=== PATIENT | female | born 1990 | race Caucasian/White ===

== ENCOUNTER 2017-05-08 19:03 | Inpatient (IN) | payer OTHER ==
[~2017-05-08] VITALS: Ht 157.5 cm; Wt 70.0 kg
[2017-05-08] MEDS ORDERED: LACTATED RINGER'S 1,000 ML IV SCH (19:14)
[2017-05-08 19:17] VITALS: Ht 157.5 cm; Wt 70.0 kg
--- NOTE | 2017-05-08 19:29 | TRIAGE ---
OB Triage Datetime Report Generated by CPN: 05/08/2017 19:29 Datetime: 05/08/2017 19:25 Time of Arrival: 05/08/2017 19:00 EGA: 39.6 Arrived By: Ambulatory Arrived From: Home Chief Complaint: PT HERE C/O UC'S Movement: Present Contractions: Regular Time Contractions Began: 05/08/2017 14:00 Rupture of Membranes: Ruptured Vaginal Bleeding: None Vaginal Discharge: Denies Recent Sexual Intercouse: Denies Abdominal Trauma: Not Applicable Patient Complaints: Contractions; Cramping; Back Pain Time Provider Notified: 05/08/2017 19:14 Provider Notified: ARDALAN Initial Plan: EFM/SVE Datetime: 05/08/2017 19:15 Assessment Type: Triage Maternal Assessment Level of Consciousness: Fully Conscious DTR's/Clonus: DTRs 2+; No Clonus Headache: Denies Blurred Vision: No Respiratory Effort: Unlabored; Regular Rhythm; Equal Expansion Breath Sounds, Left: Clear and Equal Breath Sounds, Right: Clear and Equal Nausea/Vomiting: Denies RUQ Epigastric Pain: Denies Lower Extremities Edema: None Degree: None Upper Extremities Edema: None Degree: None Facial Edema: None Fall Risk Assessment History of Falling: (0) No Secondary Diagnosis: (0) No Ambulatory Aid: (0) Bedrest/Nurse Assist IV Therapy: (0) No Gait: (0) Normal/Bedrest/Immobile Mental Status: (0) Oriented to Own Ability Fall Score: 0 Fall Risk Score Definition: No Risk: No action required Datetime: 05/08/2017 19:13 Vaginal Exam Dilatation (cms): 10.0 Effacement (%): 100 Station: 0 Exam By: GEOVANY Vaginal Bleeding: None Cervix, Consistency: Soft Cervix, Position: Anterior Presentation 'A': Cephalic Datetime: 05/08/2017 19:11 Labor Evaluation Monitor Mode: External Heart Rate Monitor Mode: External US
[2017-05-08 19:30] VITALS: BP 126/80; PULSE 121; RESP 18
[2017-05-08] MEDS ORDERED: METHYLERGONOVINE 0.2 MG INJ IM PRN ×2 (19:30→21:00)
[2017-05-08] MEDS ORDERED: OXYTOCIN 30 UNITS/LR 500 ML IV SCH ×2 (19:30)
[2017-05-08] MEDS ORDERED: IBUPROFEN 600 MG TAB PO PRN (19:30)
[2017-05-08] MEDS ORDERED: BUTORPHANOL 2 MG INJ IV PRN (19:30)
[2017-05-08] MEDS ORDERED: AMPICILLIN 2 GM/NS (PMX) 100 ML IV ONE (19:30)
[2017-05-08] MEDS ORDERED: OXYTOCIN 30 UNITS/LR 500 ML IV PRN ×2 (19:30→21:00)
[2017-05-08] MEDS ORDERED: OXYCODONE/ASPIRIN (4.88/325) TAB PO PRN (19:30)
[2017-05-08] MEDS ORDERED: MISOPROSTOL 200 MCG TAB PR PRN ×2 (19:30→21:00)
[2017-05-08] MEDS ORDERED: LIDOCAINE 1% (MPF) 30 ML INJ INJ PRN (19:30)
[2017-05-08] MEDS ORDERED: CARBOPROST 250 MCG INJ IM PRN ×2 (19:30→21:00)
[2017-05-08 19:34] LABS: BASOPHIL # 0.1 10^3/ul (0.0-0.1); BASOPHILS % 0.3 % (0.0-2.0); EOSINOPHILS # 0.1 10^3/ul (0.0-0.5); EOSINOPHILS % 0.3 % (0.0-7.0); HEMATOCRIT 38.1 % (37.0-47.0); LYMPHOCYTES # 2.4 10^3/ul (0.8-2.9); LYMPHOCYTES % 15.8 % (15.0-51.0); MEAN CORPUSCULAR HEMOGLOBIN 29.4 pg (29.0-33.0); MEAN CORPUSCULAR HGB CONC 34.1 g/dl (32.0-37.0); MEAN CORPUSCULAR VOLUME 86.2 fl (82.0-101.0); MEAN PLATELET VOLUME 9.1 fl (7.4-10.4); MONOCYTE # 0.7 10^3/ul (0.3-0.9); MONOCYTES % 4.4 % (0.0-11.0); NEUTROPHIL # 11.7 10^3/ul (1.6-7.5); NEUTROPHILS % 77.7 % (39.0-77.0); PLATELET COUNT 308 10^3/UL (140-415); RED BLOOD COUNT 4.42 10^6/ul (4.20-5.40); RED CELL DISTRIBUTION WIDTH 13.8 % (11.5-14.5); WHITE BLOOD COUNT 15.1 10^3/ul (4.8-10.8)
[2017-05-08 19:50] LABS: INR 0.89; PROTIME 12.1 Sec (11.9-14.9); PT RATIO 0.9
[2017-05-08 20:17] LABS: PARTIAL THROMBOPLASTIN TIME 26.2 Sec (25.0-35.0)
[2017-05-08] MEDS ORDERED: PREN-93 PO (20:39)
--- NOTE | 2017-05-08 20:50 | HP ---
Date/Time of Note Date/Time of Note DATE: 05/08/17 TIME: 20:44 OB - History Hx of Present Free Text/Dictation May 08, 2017 : 3 Para: 2 Care: Other (Limited care) Other Concerns: 27-year-old with IUP at 39 weeks and 6 days with [facility] presented in complete dilatation to triage and was noted to be 10 cm 100% effaced and 0 station. Patient has brought her record. Reviewed and noted to have limited care. She was later transferred at 31 weeks. Had 5-6 visits in last clinic which was very [facility]. Her antepartum course was complicated by GBS in the urine, as well as suspected macrosomia Past Family/Social History * Past Medical, Surgical, Family and Obstetric Histories reviewed from chart. Blood Type: O+ Rubella: immune RPR/VDRL: Negative GBS Status: Negative HBsAG: Negative OB Admission Exam Vital Signs Vital Signs Vital Signs Date Time Temp Pulse Resp B/P Pulse Ox O2 Delivery O2 Flow Rate FiO2 05/08/17 19:30 98.0 121 18 126/80 Room Air Physical Exam HEENT: WNL Heart: Rhythm Normal Lungs: Clear Abdomen: WNL Extremities: Normal Reflexes: Normal Cervical Dilatation: 10cm Effacement: 100% Station: 0 Amniotic Fluid: Clear Heart Rate: 130's Accelerations: Accelerations Present Decelerations: No Decelerations Varibility: Moderate Contractions on Admission: < 5 Minutes Apart Intensity: Moderate Last 72 hours Lab Results CBC & BMP 05/08/17 19:25 OB Assessment/Plan Other Assessment: IUP at 39 weeks and 6 / 7 days GBS in urine Active labor, first stage of labor Suspected Macrosomia Suspected anomaly based on the records Admit the patient transfer to L&D Start GBS prophylaxis Anticipate LALO NELSON MD May 08, 2017 20:50
[2017-05-08] MEDS: LACTATED RINGER'S 1,000 ML IV* SCH (20:53)
--- NOTE | 2017-05-08 20:53 | LDN ---
Date/Time of Note Date/Time of Note DATE: 05/08/17 TIME: 20:51 Delivery Summary Patient transferred to labor and delivery room after noted to be complete dilatated had urge to push. GBS prophylaxis antibiotics started I was called for delivery due to patient's urge to push Weeks of Gestation 39 weeks and 6 days Placenta Delivered: Spontaneously Meconium: none Perineal laceration: 1 Laceration repair: First-degree perineal laceration and first-degree left labial laceration repaired with 3 -0 chromic Anesthesia type: None Sponge & Needle done & correct: Yes All needle counts correct: Yes Any foreign bodies felt in the: No Problems: Delivery Information Sex Infant Sex: male Apgars 1 Minute: 9 5 Minute: 9 Suctioning Nose & mouth suctioned at evelyn: Yes Delee suction performed: Yes Umbilical Cord Umbilical cord with: 3 Vessels Cord presentations: nuchal cord Nuchal cord present X: 1 Cord Blood was obtained: Yes LALO NELSON MD May 08, 2017 20:53
[2017-05-08] MEDS ORDERED: WITCH HAZEL/GLYCERIN PAD PR PRN (21:00)
[2017-05-08] MEDS ORDERED: HYDROCODONE/APAP (5/325) TAB PO PRN (21:00)
[2017-05-08] MEDS ORDERED: LANOLIN 7 GM TUBE TOP PRN (21:00)
[2017-05-08] MEDS ORDERED: ONDANSETRON 4 MG INJ IV PRN (21:00)
[2017-05-08] MEDS ORDERED: DIPHENHYDRAMINE 25 MG CAP PO PRN (21:00)
[2017-05-08] MEDS ORDERED: ZOLPIDEM 5 MG TAB PO PRN (21:00)
[2017-05-08 22:15] VITALS: BP 113/73; PULSE 89; RESP 18
[2017-05-08] MEDS: SENNA/DOCUSATE NA (8.6MG/50MG) TAB PO SCH (22:30)
[2017-05-08 23:08] LABS: BARBITURATES Negative (NEGATIVE); BENZODIAZEPINES Negative (NEGATIVE); CANNABINOIDS Negative (NEGATIVE); COCAINE Negative (NEGATIVE); OPIATES Negative (NEGATIVE)
[2017-05-08] MEDS ORDERED: AMPICILLIN 1 GM/NS (PMX) 50 ML IV SCH (23:30)
[2017-05-08] MEDS: IBUPROFEN 600 MG TAB PO SCH (23:57)
[2017-05-09 01:00] VITALS: BP 111/74; PULSE 88; RESP 18
[2017-05-09 04:00] VITALS: BP 116/55; PULSE 57; RESP 18
[2017-05-09] MEDS: LACTATED RINGER'S 1,000 ML IV* SCH ×2 (04:53→12:53)
[2017-05-09] MEDS: IBUPROFEN 600 MG TAB PO SCH ×3 (06:00→18:00)
[2017-05-09 08:10] VITALS: BP 109/64; PULSE 78; RESP 17
[2017-05-09 10:06] LABS: HEMATOCRIT 33.4 % (37.0-47.0); HEMOGLOBIN 11.4 g/dl (12.0-16.0)
[2017-05-09] MEDS: SENNA/DOCUSATE NA (8.6MG/50MG) TAB PO SCH ×2 (10:09→21:00)
--- NOTE | 2017-05-09 10:21 | QN ---
Documentation Comment day 1 Afebrile Vital signs are stable Abdomen soft. Uterus firm. Lochia normal. Extremity normal. Laboratory Tests Test 05/08/17 19:25 05/08/17 21:31 05/09/17 09:54 White Blood Count 15.110^3/ul Red Blood Count 4.4210^6/ul Hemoglobin 13.0g/dl 11.4g/dl Hematocrit 38.1% 33.4% Mean Corpuscular Volume 86.2fl Mean Corpuscular Hemoglobin 29.4pg Mean Corpuscular Hemoglobin Concent 34.1g/dl Red Cell Distribution Width 13.8% Platelet Count 76890^3/UL Mean Platelet Volume 9.1fl Neutrophils % 77.7% Lymphocytes % 15.8% Monocytes % 4.4% Eosinophils % 0.3% Basophils % 0.3% Nucleated Red Blood Cells % 0.0/100WBC Neutrophils # 11.710^3/ul Lymphocytes # 2.410^3/ul Monocytes # 0.710^3/ul Eosinophils # 0.110^3/ul Basophils # 0.110^3/ul Nucleated Red Blood Cells # 0.010^3/ul Prothrombin Time 12.1Sec Prothrombin Time Ratio 0.9 INR International Normalized Ratio 0.89 Activated Partial Thromboplast Time 26.2Sec Hepatitis B Surface Antigen NEGATIVE Urine Opiates Screen Negative Urine Barbiturates Negative Urine Amphetamines Screen Negative Urine Benzodiazepines Screen Negative Urine Cocaine Screen Negative Urine Cannabinoids Negative Current Medications Medications (Trade) Dose Ordered Sig/Phuc Route PRN Reason Start Time Stop Time Status Last Admin Dose Admin Lactated Ringer's 1,000 ml @ 125 mls/hr Q8H IV 05/08/17 19:14 05/08/17 20:56 DC 05/08/17 19:24 Ampicillin 100 ml @ 100 mls/hr ONCE ONCE IV 05/08/17 19:30 05/08/17 20:29 DC 05/08/17 19:24 Ampicillin (Ampicillin 1 Gm/ NS (Pmx)) 50 ml @ 100 mls/hr Q4H IV 05/08/17 23:30 05/08/17 23:30 DC Butorphanol Tartrate (Stadol) 2 mg Q2H PRN IV PAIN 05/08/17 19:30 05/08/17 20:56 DC Lidocaine 30 ml 30 ml ONCE PRN INJ EPISIOTOMY/TEARING 05/08/17 19:30 05/08/17 20:56 DC Oxytocin/Lactated Ringer's 500 ml @ 500 mls/hr ONCE POST IV 05/08/17 19:30 05/08/17 20:56 DC 05/08/17 20:20 Oxytocin/Lactated Ringer's 500 ml @ 125 mls/hr POST IV 05/08/17 19:30 05/08/17 20:56 DC 05/08/17 20:51 Ibuprofen (Motrin) 600 mg ONCE PRN PO Mild Pain (Pain Score 1-3) 05/08/17 19:30 05/08/17 20:56 DC Oxycodone/Aspirin 2 tab 2 tab ONCE PRN PO Moderate to Severe Pain (4-10) 05/08/17 19:30 05/08/17 20:56 DC Oxytocin/Lactated Ringer's 500 ml @ 0 mls/hr ONCE PRN IV For Hemorrhage Management 05/08/17 19:30 05/08/17 20:56 DC Methylergonovine Maleate (Methergine) 0.2 mg ONCE PRN IM VAGINAL BLEEDING 05/08/17 19:30 05/08/17 20:56 DC Carboprost Tromethamine (Hemabate) 250 mcg ONCE PRN IM VAGINAL BLEEDING 05/08/17 19:30 05/08/17 20:56 DC Misoprostol 1000 mcg 1,000 mcg ONCE PRN ID VAGINAL BLEEDING 05/08/17 19:30 05/08/17 20:56 DC Lactated Ringer's (Lr) 1,000 ml @ 125 mls/hr Q8H IV* 05/08/17 20:53 Ibuprofen (Motrin) 600 mg Q6 PO 05/09/17 00:00 Acetaminophen/ Hydrocodone Bitart ([place] (5/325)) 1 tab Q4H PRN PO PAIN LEVEL 1-5 05/08/17 21:00 Ondansetron HCl (Zofran Inj) 4 mg Q6H PRN IV NAUSEA AND/OR VOMITING 05/08/17 21:00 Diphenhydramine HCl (Benadryl) 25 mg Q6H PRN PO PRURITUS 05/08/17 21:00 Zolpidem Tartrate (Ambien) 5 mg QHS PRN PO INSOMNIA 05/08/17 21:00 Senna/Docusate Sodium (Senokot-S) 1 tab BID PO 05/08/17 21:00 05/09/17 10:09 Witch Jane/ Glycerin (Tucks Pads) 1 pad BEDSIDE MEDICATION PRN ID HEMORRHOID/EPISIOTMY PAIN 05/08/17 21:00 Lanolin 1 applic 1 applic BEDSIDE MEDICATION PRN TOP BEDSIDE FOR TODD TO NIPPLES 05/08/17 21:00 Oxytocin/Lactated Ringer's 500 ml @ 0 mls/hr ONCE PRN IV For Hemorrhage Management 05/08/17 21:00 Methylergonovine Maleate (Methergine) 0.2 mg ONCE PRN IM VAGINAL BLEEDING 05/08/17 21:00 Carboprost Tromethamine (Hemabate) 250 mcg ONCE PRN IM VAGINAL BLEEDING 05/08/17 21:00 Misoprostol (Cytotec) 1,000 mcg ONCE PRN ID VAGINAL BLEEDING 05/08/17 21:00 Pneumococcal Polyvalent Vaccine (Pneumovax-23) 0.5 ml ONCE ONCE IM* 05/11/17 09:00 05/11/17 09:01 SID GOMES MD May 09, 2017 10:21
[2017-05-09 12:00] VITALS: BP 101/64; PULSE 86; RESP 7
[2017-05-09 16:00] VITALS: BP 100/63; PULSE 83; RESP 7
[2017-05-09 19:45] VITALS: BP 118/73; PULSE 92; RESP 18
[2017-05-10 04:00] VITALS: BP 97/59; PULSE 84; RESP 18
[2017-05-10] MEDS: IBUPROFEN 600 MG TAB PO SCH ×3 (06:00→12:45)
[2017-05-10 08:00] VITALS: BP 103/62; PULSE 82; RESP 18
[2017-05-10] MEDS: SENNA/DOCUSATE NA (8.6MG/50MG) TAB PO SCH (10:16)
[2017-05-10 16:00] VITALS: BP 110/73; RESP 16
--- NOTE | 2017-05-10 16:40 | PD.PPDC ---
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
--- NOTE | 2017-05-10 16:42 | DS ---
Date/Time of Note Date/Time of Note DATE: 05/10/17 TIME: 16:40 Discharge Summary Admission/Discharge Info Admit Date/Time May 08, 2017 at 19:15 Discharge Date/Time 2016 1630 Discharge Diagnosis Day 2 post normal vaginal delivery Procedures Normal vaginal delivery Hx of Present Illness Term Hospital Course Satisfactory uneventful Home Meds Reported Medications Vit No.124/Iron/FA ( Vitamin Tablet) 1 Each Tablet, 1 EACH PO, TAB 05/08/17 Follow-up Plan instruction given recommended to make appointment to be seen at the clinic in 2 weeks Primary Care Provider Mickie Turpin Time spent on discharge: < 30 minutes SID GOMES MD May 10, 2017 16:42
[2017-05-11] MEDS ORDERED: PNEUMOCOCCAL VACCINE 0.5 ML INJ (DISPENSING) IM* ONE (09:00)
== END 2017-05-10 18:50 | disposition home or self-care (01) | DRG 775 ==
LOC: OBT 19:03 → L-D 19:04 → OBT 19:15 → L-D 19:15 → PP1 21:58
PROVIDERS: ADMIT Obstetrics & Gynecology; ATTEND Obstetrics & Gynecology
PROC: 10E0XZZ Delivery of Products of Conception, External Approach (ICD-10-PCS; principal; 2017-05-08)
PROC: 0HQ9XZZ Repair Perineum Skin, External Approach (ICD-10-PCS; 2017-05-08)
DX: O70.0 First degree perineal laceration during delivery (principal); O69.81X0 Labor and delivery complicated by cord around neck, without compression, not applicable or unspecified; Z3A.39 39 weeks gestation of pregnancy; Z37.0 Single live birth
CPT/HCPCS: 80307; 85014; 85018; 85025; 85610; 85730; 86592; 86900; 86901; 87340; G0463; J2590; J7120